=== PATIENT | male | born 1960 | race Caucasian/White ===

== ENCOUNTER 2016-10-20 00:11 | Emergency (ER) | payer OTHER ==
[~2016-10-20] VITALS: Ht 190.5 cm; Wt 93.0 kg
[2016-10-20 01:30] VITALS: BP 166/124
--- NOTE | 2016-10-20 01:30 | NUR ---
PT AMBULATORY TO ER BED 6 C/O DIFFICULTY IN URINATING WITH BURNING CENSATION. PT AOX3 RR EVEN AND UNLABORED. NO SOB NOTED. NAD NOTED. NO NVD AT THIS TIME. PT NOT DIAPHORETIC. PT GOWNED AND PLACED ON MONITOR WAITING FOR MD COELLO.
--- NOTE | 2016-10-20 01:35 | NUR ---
URINE COLLECTED. CALLED LAB FOR BOX ORDER PERSON.
[2016-10-20 02:01] LABS: APPEARANCE,URINE CLOUDY (CLEAR); BILIRUBIN,URINE NEGATIVE (NEGATIVE); BLOOD, URINE 3+ Ery/uL (NEGATIVE); COLOR,URINE YELLOW (YELLOW); KETONES,URINE NEGATIVE (NEGATIVE); LEUKOCYTE ESTERASE ,URINE 2+ (NEGATIVE); NITRITE, URINE NEGATIVE (NEGATIVE); PROTEIN,URINE 3+ mg/dl (NEGATIVE); UGLUCOSE NEGATIVE (NEGATIVE); UROBILINOGEN,URINE 0.2 EU/dL (0.2)
[2016-10-20 02:05] LABS: ADD URINE CULTURE YES; BACTERIA,URINE 1+ /HPF (None Seen); RBC,URINE 51-80 /HPF (0-2); WBC,URINE 81-100 /HPF (0-3)
[2016-10-20 02:06] LABS: SQUAMOUS EPITHELIAL CELL,UR None Seen /HPF (None Seen)
== END 2016-10-20 02:23 | disposition home or self-care (01) ==
LOC: ER 00:12
DX: N39.0 Urinary tract infection, site not specified (principal); R00.0 Tachycardia, unspecified; F17.210 Nicotine dependence, cigarettes, uncomplicated
CPT/HCPCS: 81000-TC; 87086-TC; A4606; Z7610

== ENCOUNTER 2016-11-06 23:08 | Emergency (ER) | payer OTHER ==
[~2016-11-06] VITALS: Ht 177.8 cm; Wt 74.8 kg
--- NOTE | 2016-11-06 23:20 | NUR ---
PT AMBULATORY TO ER BED 8 C/O "FELL OFF 6 FEET LADDER ON SATURDAY, LANDED ON RT FA AND RT RIB CAGE AREA" PT AOX4 RR EVEN AND UNLABORED. NO SOB NOTED. NAD NOTED. NO NVD AT THIS TIME. PT GOWNED WAITING FOR MD COELLO.
[2016-11-06] MEDS ORDERED: IBUPROFEN 600 MG TABLET PO ONE ×2 (23:28→23:30)
--- NOTE | 2016-11-06 23:31 | NUR ---
PT TAKEN TO XRAY VIA JULIO
--- NOTE | 2016-11-07 01:18 | NUR ---
INFORMED CIRCULAR SAW OPERATOR ERICK PT CURRENT BP. DR. BUTTERFIELD IS AWARE WELL.
[2016-11-07] MEDS ORDERED: AMLODIPINE BESYLATE 5 MG TABLET ONE (01:26)
--- NOTE | 2016-11-07 01:28 | NUR ---
URINE COLLECTED. CALLED LAB FOR MEDICAL LABORATORY TECHNICAL OFFICER.
[2016-11-07] MEDS ORDERED: AMLODIPINE BESYLATE 5 MG TABLET PO ONE (01:30)
[2016-11-07 01:46] LABS: BILIRUBIN,URINE NEGATIVE (NEGATIVE); BLOOD, URINE 3+ Ery/uL (NEGATIVE); COLOR,URINE YELLOW (YELLOW); KETONES,URINE NEGATIVE (NEGATIVE); LEUKOCYTE ESTERASE ,URINE NEGATIVE (NEGATIVE); NITRITE, URINE NEGATIVE (NEGATIVE); PROTEIN,URINE 2+ mg/dl (NEGATIVE); UGLUCOSE NEGATIVE (NEGATIVE)
[2016-11-07 01:56] LABS: APPEARANCE,URINE CLEAR (CLEAR)
[2016-11-07 02:00] LABS: RBC,URINE 25-30 /HPF (0-2)
[2016-11-07 02:01] LABS: ADD URINE CULTURE NO; BACTERIA,URINE None seen /HPF (None Seen); CALCIUM OXALATE CRYSTALS,UR Rare /HPF (None Seen); MUCUS,URINE Rare /LPF (None Seen); SPERM,URINE Few /HPF (None Seen); SQUAMOUS EPITHELIAL CELL,UR Few /HPF (None Seen)
--- NOTE | 2016-11-07 02:10 | NUR ---
DR. BUTTERFIELD AT BEDSIDE SPEAKING TO PT REGARDING RESULTS.
--- NOTE | 2016-11-07 02:13 | NUR ---
Patient discharged to home in stable condition. Written and verbal after care instructions given. Patient verbalizes understanding of instruction. ambulatory with a steady gait. instructed pt not to drive when on pain medication. pt verbalize understanding.
[2016-11-07 02:15] VITALS: BP 190/130
== END 2016-11-07 02:15 | disposition home or self-care (01) ==
LOC: ER 23:08
DX: S52.201A Unspecified fracture of shaft of right ulna, initial encounter for closed fracture (principal); S20.211A Contusion of right front wall of thorax, initial encounter; F17.210 Nicotine dependence, cigarettes, uncomplicated; I10 Essential (primary) hypertension; W11.XXXA Fall on and from ladder, initial encounter; Y93.89 Activity, other specified; Y92.009 Unspecified place in unspecified non-institutional (private) residence as the place of occurrence of the external cause; Y99.9 Unspecified external cause status
CPT/HCPCS: 29125; 71100; 73090; 73100; 81001; 93005; 99285; A4606; Z7610; 81000-TC

== ENCOUNTER 2016-12-23 03:56 | Emergency (ER) | payer OTHER ==
[~2016-12-23] VITALS: Ht 190.5 cm; Wt 99.8 kg
[2016-12-23 04:11] VITALS: BP 187/133
== END 2016-12-23 04:24 | disposition home or self-care (01) ==
LOC: ER 03:56
DX: Z76.0 Encounter for issue of repeat prescription (principal); I10 Essential (primary) hypertension; F17.200 Nicotine dependence, unspecified, uncomplicated
CPT/HCPCS: A4606; Z7610